=== PATIENT | female | born 1960 | race Caucasian/White ===

== ENCOUNTER 2019-03-06 22:04 | Emergency (ER) | payer OTHER ==
[~2019-03-06] VITALS: Wt 76.0 kg
[2019-03-07] MEDS ORDERED: APIX5TAB PO (00:21)
--- NOTE | 2019-03-07 01:29 | ERD ---
ER Documentation Chief Complaint Chief Complaint SENT FROM PCP, US SHOWS LLE THROMBOSIS HPI During the patient's encounter translation services were utilized Language: [place] Source: Video 58-year-old female who is a very poor historian. The patient states that she was sent to the emergency room because of a DVT. On further questioning and history it appears the patient has a known DVT has been on a medication for prolonged period of time but has not been on the medication for the past 8 days because "my primary care doctor has not been paying attention". Patient was somehow sent to have an ultrasound of her left lower extremity that showed persistent left popliteal DVT. Patient denies any chest pain shortness of br eath or pleuritic pain. The patient does not know which medication she takes and does not know her name of her primary care physician or referring provider. Patient does not have any further history or information. ROS All systems reviewed and are negative except as per history of present illness. Medications Home Meds Active Scripts Apixaban* (Eliquis*) 5 Mg Tablet, 5 MG PO BID for 30 Days, TAB 10mg PO BID x 7 days then 5mg po BID after. Prov:SHADY METZGER MD 03/07/19 PMhx/Soc Hx Miscellaneous Medical Probl: Yes (DVT) Hx Alcohol Use: No Hx Substance Use: No Hx Tobacco Use: No Smoking Status: Never smoker FmHx Family History: No diabetes Physical Exam Vitals Vital Signs Date Temp Pulse Resp B/P (MAP) Pulse Ox O2 O2 Flow FiO2 Time Delivery Rate 03/06/19 98.3 66 18 154/110 99 22:08 (125) Physical Exam General: Well developed, well nourished, no acute distress Head: Normocephalic, atraumatic. Eyes: Pupils equally reactive, EOM intact ENT: Moist mucous membranes Neck: Supple, no lymphadenopathy Respiratory: Lungs clear bilaterally, no distress Cardiovascular: RRR, no murmurs, rubs, or gallops Abdominal: Soft, non-tender, non-distended, no peritoneal signs : Deferred MSK: Left lower extremity unilateral swelling. Strong distal pulses. Neurologic: Alert and oriented, moving all extremities, normal speech, no focal weakness, no cerebellar signs Skin: No rash Psych: Normal mood Result Diagram: 03/07/19 0015 03/07/19 0015 Results 24 hrs Laboratory Tests Test 03/07/19 00:15 White Blood Count 8.5 10^3/ul Red Blood Count 4.25 10^6/ul Hemoglobin 12.2 g/dl Hematocrit 38.6 % Mean Corpuscular Volume 90.8 fl Mean Corpuscular Hemoglobin 28.7 pg Mean Corpuscular Hemoglobin Concent 31.6 g/dl Red Cell Distribution Width 12.3 % Platelet Count 178 10^3/UL Mean Platelet Volume 11.2 fl Immature Granulocytes % 0.200 % Neutrophils % 58.1 % Lymphocytes % 33.8 % Monocytes % 5.8 % Eosinophils % 1.7 % Basophils % 0.4 % Nucleated Red Blood Cells % 0.0 /100WBC Immature Granulocytes # 0.020 10^3/ul Neutrophils # 4.9 10^3/ul Lymphocytes # 2.9 10^3/ul Monocytes # 0.5 10^3/ul Eosinophils # 0.1 10^3/ul Basophils # 0.0 10^3/ul Nucleated Red Blood Cells # 0.0 10^3/ul Prothrombin Time 12.3 Sec Prothrombin Time Ratio 1.0 INR International Normalized Ratio 0.90 Activated Partial Thromboplast Time 26.0 Sec Sodium Level 142 mmol/L Potassium Level 4.2 mmol/L Chloride Level 104 mmol/L Carbon Dioxide Level 27 mmol/L Anion Gap 11 Blood Urea Nitrogen 22 mg/dl Creatinine 0.60 mg/dl Est Glomerular Filtrat Rate mL/min > 60 mL/min Glucose Level 101 mg/dl Calcium Level 9.7 mg/dl Procedures/MDM EKG, MONITORS, & DIAGNOSTIC IMAGING: Outside hospital duplex of the left lower extremity Document shows evidence of DVTs to the left popliteal vein LAB INTERPRETATION: I reviewed the laboratory testing and it shows no evidence of acute process MEDICAL DECISION MAKING: The patient is a very poor historian and cannot even recall what medication she is taking. Based on multiple phone calls to local pharmacies we are able to find the patient's pharmacy who is given us a medication list. The patient takes Eliquis 5 mg twice daily. Patient does have evidence of DVT but this is a known DVT. The patient has no signs or symptoms concerning for systemic illness. No signs or symptoms concerning for pulmonary embolism. Reinitiation of the patient's Eliquis would be appropriate. Given that the patient has been off the medication for greater than 1 week I will restart as she is starting this medication and new with 10 mg p.o. twice daily for 7 days then transition back to her 5 mg per protocol. CONSULTATION: None DISPOSITION PLAN: The patient does not have an identifiable emergent medical condition that warrants inpatient hospitalization at this time. The patient is deemed safe for discharge with outpatient follow-up. We discussed follow up with the patient's primary care doctor within 24 to 48 hours as needed. We also discussed return to the emergency room for worsening symptoms or worsening condition. Outpatient referral: None required Discharge Medications: Eliquis as documented above Departure Diagnosis: Primary Impression: Left leg DVT Affected thrombotic vein of extremity: popliteal Chronicity: acute Qualified Codes: I82.432 - Acute embolism and thrombosis of left popliteal vein Additional Impression: Encounter for medication refill Condition: Stable Patient Instructions: Dvt [facility] Usted se castellon hecho un examen mdico de control que le indica que no est en princess condicin que requiera tratamiento urgente en el Departamento de Emergencia. Un estudio ms profundo y el tratamiento de son condicin pueden esperar sin ningn riesgo hasta que usted sea atendida/o en el consultorio de son mdico o princess clnica. Es responsabilidad suya arreglar princess lawrence para el seguimiento del mariya. MANEJO DE CONDICIONES NO URGENTES EN EL FUTURO 1) Si usted tiene un mdico de atencin primaria: Usted debera llamar a son mdico de atencin primaria antes de venir al dep artamento de emergencia. Despus de las horas de consultorio, son doctor o son asociado/a est disponible por telfono. El mdico o enfermero de shawn en el servicio telefnico puede asesorarle por tracie medio para atender el problema, o mariya contrario se puede programar princess lawrence. 2) Si usted no tiene un mdico de atencin primaria: Llame al mdico o clnica de referencia que aparece abajo kathleen las horas de consultorio para hacer princess lawrence para que le vean. CLINICAS: [facility] [phone] [facility] [phone] [facility] [phone] [facility] [phone] [place] [id number] [phone] [id number] [phone] [facility]. [facility] () Usted se castellon hecho un examen mdico de control que le indica que no est en princess condicin que requiera tratamiento urgente en el Departamento de Emergencia. Un estudio ms profundo y el tratamiento de son condicin pueden esperar sin ningn riesgo hasta que usted sea atendida/o en el consultorio de son mdico o princess clnica. Es responsabilidad suya arreglar princess lawrence para el seguimiento del mariya. MANEJO DE CONDICIONES NO URGENTES EN EL FUTURO 1) Si usted tiene un mdico de atencin primaria: Usted debera llamar a son mdico de atencin primaria antes de venir al departamento de emergencia. Despus de las horas de consultorio, son doctor o son asociado/a est disponible por telfono. El mdico o enfermero de shawn en el servicio telefnico puede asesorarle por tracie medio para atender el problema, o mariya contrario se puede programar princess lawrence. 2) Si usted no tiene un mdico de atencin primaria: Llame al mdico o condado institucions de referencia que aparece abajo kathleen las horas de consultorio para hacer princess lawrence para que le vean. SI USTED NO PUEDE PAGAR PARA KATHARINE UN MEDICO puede ir a: [facility] [id number] [place] [address] [facility] [address] [place] [address] [facility] [address] [place] [address] [facility] [address] [place], [place] [id number] Additional Instructions: Llame al doctor MAANA y harvey princess LAWRENCE PARA DENTRO DE 2-3 WETZEL.Dgale a la secretaria que nosotros le instruimos hacer esta lawrence.Avise o llame si son condicin se empeora antes de la lawrence. Regresa aqui si peor o no mejor. SHADY METZGER MD March 07, 2019 01:29
[2019-03-07 03:00] VITALS: BP 126/65; PULSE 79; RESP 18
== END 2019-03-07 06:14 | disposition home or self-care (01) ==
LOC: E/R 22:04
DX: I82.432 Acute embolism and thrombosis of left popliteal vein (principal)
CPT/HCPCS: 36415; 80048; 85025; 85610; 85730; Z7502; 99283